=== PATIENT | female | born 1960 | race Caucasian/White ===

== ENCOUNTER 2018-01-11 12:34 | Outpatient (CLI) | payer OTHER | END 2018-01-11 13:00 | disposition home or self-care (01) | LOC: NUCLEAR 12:34 | DX: M81.0 Age-related osteoporosis without current pathological fracture (principal) ==

== ENCOUNTER 2018-06-13 07:23 | Outpatient (CLI) | payer OTHER | END 2018-06-13 07:37 | disposition home or self-care (01) | LOC: NUCLEAR 07:23 | DX: R07.89 Other chest pain (principal); I25.10 Atherosclerotic heart disease of native coronary artery without angina pectoris | CPT/HCPCS: 78452; 93017; A9500 ==

== ENCOUNTER 2019-05-22 09:00 | Inpatient (IN) | payer OTHER ==
[~2019-05-22] VITALS: Ht 170.2 cm; Wt 68.9 kg
[2019-05-22] MEDS ORDERED: SYNTHROID88 MCG PO (12:02)
[2019-05-29] MEDS ORDERED: ATORVASTATIN CA20 MG PO (08:03)
[2019-05-31] MEDS ORDERED: ELIQUIS2.5 MG PO (15:21)
[2019-05-31] MEDS ORDERED: PERCOCET 5-3251 EACH PO (15:21)
[2019-05-31] MEDS ORDERED: DUI500 PO (15:21)
== END 2019-05-31 17:12 | DRG 470 ==
LOC: O/R 09:00 → SURG 05-29 06:06 → O/R 05-29 06:06 → SURG 05-29 13:09
PROVIDERS: ADMIT Orthopaedic Surgery
PROC: 0MNN0ZZ Release Right Knee Bursa and Ligament, Open Approach (ICD-10-PCS; 2019-05-29)
PROC: 0SRC0J9 Replacement of Right Knee Joint with Synthetic Substitute, Cemented, Open Approach (ICD-10-PCS; principal; 2019-05-29 09:30)
DX: M17.11 Unilateral primary osteoarthritis, right knee (principal); D62 Acute posthemorrhagic anemia; E07.89 Other specified disorders of thyroid; M81.0 Age-related osteoporosis without current pathological fracture; M22.11 Recurrent subluxation of patella, right knee; Z85.850 Personal history of malignant neoplasm of thyroid; Z08 Encounter for follow-up examination after completed treatment for malignant neoplasm

== ENCOUNTER 2019-11-16 11:15 | Inpatient (IN) | payer OTHER ==
[~2019-11-16] VITALS: Ht 170.2 cm; Wt 65.8 kg
[~2019-11-16 11:15] MED LIST: ATORVASTATIN CA20 MG PO; DUI500 PO; ELIQUIS2.5 MG PO; PERCOCET 5-3251 EACH PO; SYNTHROID88 MCG PO
[2019-11-16] MEDS ORDERED: PREMARIN0.45 MG PO (12:13)
[2019-11-16] MEDS ORDERED: CALCIUM500 M2 PO (12:15)
[2019-11-16] MEDS ORDERED: ASPIR 8181 MG PO (12:15)
[2019-11-16] MEDS ORDERED: OCUVITE EYE HE1 EACH PO (12:16)
[2019-11-20] MEDS ORDERED: XYZAL5 MG PO (08:43)
[2019-11-20] MEDS ORDERED: ATORVASTATIN CA20 MG PO (08:43)
[2019-11-20] MEDS ORDERED: MONTELUKAST SOD10 MG PO (08:44)
[2019-11-20] MEDS ORDERED: VITAMIN C100 MG PO (08:45)
[2019-11-22] MEDS ORDERED: ELIQUIS2.5 MG PO (16:59)
[2019-11-22] MEDS ORDERED: DUI500 PO (16:59)
[2019-11-22] MEDS ORDERED: PERCOCET 5-3251 EACH PO (16:59)
== END 2019-11-22 19:36 | DRG 467 ==
LOC: SURG 11-20 06:21 → O/R 11-20 06:21 → SURG 11-20 18:16
PROVIDERS: ADMIT Orthopaedic Surgery
PROC: 0SRC0J9 Replacement of Right Knee Joint with Synthetic Substitute, Cemented, Open Approach (ICD-10-PCS; 2019-11-20)
PROC: 0SPC0JZ Removal of Synthetic Substitute from Right Knee Joint, Open Approach (ICD-10-PCS; principal; 2019-11-20 12:00)
DX: T84.012A Broken internal right knee prosthesis, initial encounter (principal); D62 Acute posthemorrhagic anemia; M17.11 Unilateral primary osteoarthritis, right knee; E03.8 Other specified hypothyroidism; T84.89XA Other specified complication of internal orthopedic prosthetic devices, implants and grafts, initial encounter

== ENCOUNTER 2020-01-01 05:55 | Day surgery (SDC) | payer OTHER ==
[~2020-01-01 05:55] MED LIST changes: +ASPIR 8181 MG PO; +CALCIUM500 M2 PO; +MONTELUKAST SOD10 MG PO; +OCUVITE EYE HE1 EACH PO; +PREMARIN0.45 MG PO; +VITAMIN C100 MG PO; +XYZAL5 MG PO
[2020-01-01] MEDS ORDERED: ACETAMINOPHEN-1 EAC2 PO (07:49)
== END 2020-01-01 09:20 | disposition home or self-care (01) ==
LOC: CIR.AMB 05:55
DX: T84.018A Broken internal joint prosthesis, other site, initial encounter (principal); M24.561 Contracture, right knee; M24.661 Ankylosis, right knee

== ENCOUNTER 2020-01-15 05:40 | Inpatient (IN) | payer OTHER ==
[~2020-01-15] VITALS: Ht 61 cm; Wt 5.0 kg
[~2020-01-15 05:40] MED LIST changes: +ACETAMINOPHEN-1 EAC2 PO
--- NOTE | 2020-01-15 05:58 | NUR ---
SE RECIBE PTE ALERTA Y ORIENTADA X3,REFIERE TENEWR DOLOR EN LA RODILLA DERECHA PTE REFIERE QUE NO PUEDE RADIATION THERAPY TECHNOLOGIST EMILY LA PIERNA RT, FUE OPERADA POR EL MAGED SE COMUNICO CON EL EL CUAL LA REFIERE A LA JULIANA DE ER
[2020-01-15] MEDS ORDERED: ULTRACET PO (13:27)
[2020-01-16] MEDS ORDERED: CODE1TAB37 PO (08:22)
== END 2020-01-16 10:19 | disposition home or self-care (01) | DRG 488 ==
LOC: ER 05:40 → SEC-K 06:58 → SURH 19:11
PROVIDERS: ADMIT Orthopaedic Surgery
PROC: 0SSC0ZZ Reposition Right Knee Joint, Open Approach (ICD-10-PCS; principal; 2020-01-15 12:30)
DX: T84.82XA Fibrosis due to internal orthopedic prosthetic devices, implants and grafts, initial encounter (principal); D62 Acute posthemorrhagic anemia; M24.661 Ankylosis, right knee; M24.561 Contracture, right knee; Z96.651 Presence of right artificial knee joint

== ENCOUNTER 2023-09-06 05:45 | Day surgery (SDC) | payer OTHER ==
[2023-09-05 12:13] LABS: HEMATOCRIT 34.5 % (36.0-45.00); MEAN CELL VOLUME 76.1 fL (80.00-100.00); MEAN CORPUSCULAR HEMOGLOBIN 24.2 pg (27.00-32.0); MEAN CORPUSCULAR HGB CONC 31.7 g/dl (32.0-36.0); PLATELET COUNT 250 K/uL (150-450); RED BLOOD COUNT 4.54 M/uL (4.00-6.00); RED CELL DISTRIBUTION WIDTH 16.7 % (11.5-14.5)
[2023-09-05 12:31] LABS: INR 0.97; PARTIAL THROMBOPLASTIN TIME 23.9 SECONDS (22.0-34.0); PROTHROMBIN TIME 10.2 SECONDS (9.0-11.5)
[2023-09-05 12:36] LABS: ALBUMIN 3.7 gm/dL (3.4-5.0); BILIRUBIN TOTAL 0.52 mg/dL (0.3-1.2); CALCIUM 8.9 mg/dL (8.5-10.1); CREATININE SERUM 0.68 mg/dL (0.55-1.02); GFR 87.11; GLOBULINA 3.2 G/DL (2.4-3.5); POTASSIUM 4.18 mEq/L (3.5-5.1); TOTAL PROTEIN 6.9 gm/dL (6.4-8.2)
[2023-09-05 12:47] LABS: URINE APPEARANCE Clear; URINE BILIRRUBIN Negative (NEGATIVE); URINE BLOOD Negative; URINE COLOR Yellow; URINE GLUCOSE Negative (NEGATIVE); URINE LEUKOCYTE Negative; URINE NITRATE Negative; URINE PROTEIN Negative (NEGATIVE); URINE UROBILINOGEN 0.2 E.U./dl
[2023-09-05 12:51] LABS: URINE BACTERIA 98.2 uL (0.0-1933); URINE EPITHELIAL CELLS 15.8 uL (0.0-38.8); URINE RBC 5.7 uL (0.0-20.8)
[2023-09-05 13:11] LABS: URINE WBC 1.6 uL (0.0-23.2)
[~2023-09-06 05:45] MED LIST changes: +CODE1TAB37 PO; +ULTRACET PO
== END 2023-09-06 17:10 | disposition home or self-care (01) ==
LOC: CIR.AMB 05:45
PROVIDERS: ATTEND Orthopaedic Surgery Hand Surgery
DX: M77.01 Medial epicondylitis, right elbow (principal); E11.9 Type 2 diabetes mellitus without complications; E78.00 Pure hypercholesterolemia, unspecified; E78.3 Hyperchylomicronemia; I10 Essential (primary) hypertension; Z20.822 Contact with and (suspected) exposure to COVID-19